=== PATIENT | female | born 1985 | race American Indian/Alaskan Native ===

== ENCOUNTER 2017-12-16 18:41 | Emergency (ER) | payer SELFPAY ==
[2017-12-16 18:46] VITALS: BP 126/60
[2017-12-16] MEDS ORDERED: BOOSTRIX IM ONE (19:33)
--- NOTE | 2017-12-16 19:38 | Emergency Department Report ---
Abscess Boil HPI - HPI Chief Complaint: Skin/Abscess/Foreign Body Stated Complaint: BOIL Time Seen by Provider: 12/16/17 19:20 Duration: 2 Days Location: Perianal Severity: Severe History: Yes Pain, No Fever, No Purulent Drainage, No Numbness, No Foreign Body , No Previous History, No Insect Bite HPI: Patient reports an abscess to the right buttock that started two days ago. However she refuses irrigation and drainage at this time. She is requesting antibiotic and pain medication Home Medications: Previous Rx's Medication Instructions Recorded Last Taken Type Cephalexin [Keflex] 500 mg PO Q12HR #20 cap 12/16/17 Unknown Rx Ibuprofen 800 mg PO TID #30 tablet 12/16/17 Unknown Rx Sulfamethoxazole/Trimethoprim 1 each PO BID #14 tablet 12/16/17 Unknown Rx [Bactrim DS TAB] Allergies/Adverse Reactions: Allergies Allergy/AdvReac Type Severity Reaction Status Date / Time No Known Allergies Allergy Unverified 12/16/17 18:44 ED Review of Systems ROS: Stated complaint: BOIL Other details as noted in HPI Constitutional: denies: chills, fever Respiratory: denies: cough, orthopnea, shortness of breath, SOB with exertion, SOB at rest, stridor, wheezing Cardiovascular: denies: chest pain, palpitations, dyspnea on exertion, orthopnea , edema, syncope, paroxysmal nocturnal dyspnea Gastrointestinal: denies: abdominal pain, nausea, vomiting, diarrhea, constipation, hematemesis, melena, hematochezia Musculoskeletal: denies: back pain, joint swelling, arthralgia Skin: other (abscess to right buttock) Neurological: denies: headache, weakness, paresthesias Psychiatric: denies: anxiety, depression Hematological/Lymphatic: denies: easy bleeding, easy bruising ED Past Medical Hx - Past Medical History Previous Medical History?: No - Surgical History Past Surgical History?: No - Social History Smoking Status: Current Every Day Smoker Substance Use Type: Alcohol, Marijuana - Medications Home Medications: Home Medications Medication Instructions Recorded Confirmed Last Taken Type Cephalexin [Keflex] 500 mg PO Q12HR #20 cap 12/16/17 Unknown Rx Ibuprofen 800 mg PO TID #30 tablet 12/16/17 Unknown Rx Sulfamethoxazole/Trimethoprim 1 each PO BID #14 tablet 12/16/17 Unknown Rx [Bactrim DS TAB] ED Abscess Boil Physical Exam - Exam General: Vital signs noted. No distress. Alert and acting appropriately. Size: 2 cm Exam: Yes Tenderness, Yes Fluctuance, Yes Normal Neurologic Exam, Yes Normal Circulation, No Surrounding Cellulites/Erythema, No Lymphangitis, No Crepitation , No Heart Murmur ED Course Vital Signs 12/16/17 18:44 Temperature 98.9 F Pulse Rate 85 Respiratory 18 Rate Blood Pressure 126/60 O2 Sat by Pulse 99 Oximetry Critical care attestation.: If time is entered above; I have spent that time in minutes in the direct care of this critically ill patient, excluding procedure time. ED Medical Decision Making - Lab Data Vital Signs 12/16/17 18:44 Temperature 98.9 F Pulse Rate 85 Respiratory 18 Rate Blood Pressure 126/60 O2 Sat by Pulse 99 Oximetry - Medical Decision Making During the course of ED, tetanus vaccine was given. Patient refuses I&D of right buttock abscess due to pain and history of I&D in the past near the same location. She was sent home with prescription for Keflex, Bactrim DS and Ibuprofen, instructed to do warm bath soaks three times a day to expedite drainage of abscess, she verbalized understanding - Differential Diagnosis Abscess, Cellulitis ED Disposition Clinical Impression: Abscess Disposition: [id number]-01 TO HOME OR SELFCARE Is pt being admited?: No Does the pt Need Aspirin: No Condition: Stable Instructions: Abscess (ED) Additional Instructions: Take medication as directed. Warm bath soaks three times a day to expedite drainage of abscess. Return back to the ED for worsening symptoms or concerns Prescriptions: Cephalexin [Keflex] 500 mg PO Q12HR #20 cap Ibuprofen 800 mg PO TID #30 tablet Sulfamethoxazole/Trimethoprim [Bactrim DS TAB] 1 each PO BID #14 tablet Referrals: PRIMARY CARE, [Primary Care Provider] - 3-5 Days Forms: Work/School Release Form(ED) Time of Disposition: 19:39
== END 2017-12-16 19:42 | disposition home or self-care (01) ==
LOC: ED 18:41
DX: L02.31 Cutaneous abscess of buttock (principal); F17.200 Nicotine dependence, unspecified, uncomplicated; F12.10 Cannabis abuse, uncomplicated
CPT/HCPCS: 90471; 90715; 99282

== ENCOUNTER 2020-12-17 12:21 | Emergency (ER) | payer BC ==
[2020-12-17 15:38] LABS: Basophils % (Auto) 0.5 % (0.0-1.8); Eosinophils # (Auto) 0.1 K/mm3 (0.0-0.4); Eosinophils % (Auto) 1.3 % (0.0-4.3); Lymphocytes # (Auto) 1.9 K/mm3 (1.2-5.4); Lymphocytes % (Auto) 32.3 % (13.4-35.0); Mean Corpuscular HGB Conc 34 % (30-34); Mean Corpuscular Volume 99 fl (79-97); Monocytes # (Auto) 0.4 K/mm3 (0.0-0.8); Platelet Count 267 K/mm3 (140-440); Red Blood Count 4.15 M/mm3 (3.65-5.03); Red Cell Distribution Width 15.4 % (13.2-15.2)
[2020-12-17 15:52] LABS: Alanine Aminotransferase 10 units/L (7-56); Albumin 4.4 g/dL (3.9-5); BUN/Creatinine Ratio 11; Blood Urea Nitrogen 10 mg/dL (7-17); Calcium 9.2 mg/dL (8.4-10.2); Hemolysis Index 2
--- NOTE | 2020-12-17 17:43 | Emergency Department Report ---
ED Chest Pain HPI - General Chief Complaint: Chest Pain Stated Complaint: CHEST PAINS PUI?: No Time Seen by Provider: 12/17/20 17:15 Source: patient Mode of arrival: Ambulatory Limitations: No Limitations - History of Present Illness Initial Comments: Patient is a 35-year-old female that presents emergency room with complaints of left-sided chest pain x2 days. Patient states that she also has a slight cough. Patient reports dry cough. Patient denies fever or chills. Patient states that her chest pain has been intermittent for 3 months but over the past 2 days has been a little bit more permanent. Patient states that her chest pain is better with rest and remaining still. Patient states that her pain is really bad when she tries to work and lift things at work. Patient states that she received her Sanjeev Adype vaccine October 2020. Patient denies nausea vomiting. Patient denies shortness of breath. Patient denies abdominal pain. Patient denies diaphoresis. Patient denies anxiety. Patient denies recent travel. Patient denies recent international travel. Patient denies exposure to the novel coronavirus. Patient denies sick contacts. Patient denies fever and chills. Patient denies cough. Patient denies diarrhea. Patient denies coming in contact with anybody with symptoms of the novel coronavirus. MD Complaint: chest pain -: Sudden Onset: during rest Pain Location: left chest Pain Radiation: none Severity: severe Severity scale (0 -10): 10 Quality: sharp Consistency: constant Improves With: rest, remaining still Worsens With: inspiration, palpation, movement re: denies: nausea, vomting, diaphoresis, dyspnea, sense of impending doom Other Symptoms: cough. denies: fever, rash, acid taste in mouth, leg swelling, palpitations, burping Treatments Prior to Arrival: none Aspirin use within the Past 7 Days: (0) No - Related Data On Oral Contraceptives: No Previous Rx's Medication Instructions Recorded Last Taken Type Ibuprofen 800 mg PO TID #30 tablet 12/16/17 Unknown Rx Sulfamethoxazole/Trimethoprim 1 each PO BID #14 tablet 12/16/17 Unknown Rx [Bactrim DS TAB] cephALEXin [Keflex] 500 mg PO Q12HR #20 cap 12/16/17 Unknown Rx Albuterol Mdi (or & Nicu Only) 2 puff IH Q4HR PRN #1 inhalation 06/25/18 Unknown Rx [ProAir HFA Inhaler] Oseltamivir [Tamiflu] 75 mg PO BID #10 cap 06/25/18 Unknown Rx Acetaminophen [Non-Aspirin Pain 1,000 mg PO QID PRN #30 tablet 02/05/20 Unknown Rx Relief] Amoxicillin/Potassium Clav 1 each PO BID 7 Days #14 tablet 02/05/20 Unknown Rx [Augmentin 875-125 Tablet] diphenhydrAMINE [Benadryl CAP] 25 mg PO Q8HR PRN #30 capsule 02/05/20 Unknown Rx Acetaminophen/Codeine [Tylenol 1 tab PO Q6H PRN #12 tab 12/17/20 Unknown Rx /Codeine # 3 tab] methylPREDNISolone [Medrol 4MG 4 mg PO DAILY 6 Days #1 tab.ds.pk 12/17/20 Unknown Rx DOSEPAK (21 tabs)] Allergies Allergy/AdvReac Type Severity Reaction Status Date / Time shellfish derived Allergy Dizziness Verified 02/05/20 18:00 ANTS Allergy Anaphylaxis Uncoded 02/05/20 18:00 Heart Score - HEART Score History: Slightly suspicious EKG: Normal Age: < 45 Risk factors: No known risk factors Troponin: < normal limit HEART Score: 0 - EKG Read Time Time EKG Completed: 12:25 EKG Read Time: 12:29 ED Review of Systems ROS: Stated complaint: CHEST PAINS Other details as noted in HPI Constitutional: denies: chills, fever Eyes: denies: eye pain, eye discharge, vision change ENT: denies: ear pain, throat pain Respiratory: see HPI, cough. denies: shortness of breath, wheezing Cardiovascular: as per HPI, chest pain. denies: palpitations Endocrine: no symptoms reported Gastrointestinal: denies: abdominal pain, nausea, diarrhea Genitourinary: denies: urgency, dysuria, discharge Musculoskeletal: denies: back pain, joint swelling, arthralgia Skin: denies: rash, lesions Neurological: denies: headache, weakness, paresthesias Psychiatric: denies: anxiety, depression Hematological/Lymphatic: denies: easy bleeding, easy bruising ED Past Medical Hx - Past Medical History Previous Medical History?: Yes Hx Headaches / Migraines: Yes Additional medical history: DEPRESSION/ PTSD/ ANXIETY - Surgical History Past Surgical History?: No - Family History Family history: no significant - Social History Smoking Status: Current Every Day Smoker Substance Use Type: Alcohol, Marijuana - Medications Home Medications: Home Medications Medication Instructions Recorded Confirmed Last Taken Type Ibuprofen 800 mg PO TID #30 tablet 12/16/17 Unknown Rx Sulfamethoxazole/Trimethoprim 1 each PO BID #14 tablet 12/16/17 Unknown Rx [Bactrim DS TAB] cephALEXin [Keflex] 500 mg PO Q12HR #20 cap 12/16/17 Unknown Rx Albuterol Mdi (or & Nicu Only) 2 puff IH Q4HR PRN #1 inhalation 06/25/18 Unknown Rx [ProAir HFA Inhaler] Oseltamivir [Tamiflu] 75 mg PO BID #10 cap 06/25/18 Unknown Rx Acetaminophen [Non-Aspirin Pain 1,000 mg PO QID PRN #30 tablet 02/05/20 Unknown Rx Relief] Amoxicillin/Potassium Clav 1 each PO BID 7 Days #14 tablet 02/05/20 Unknown Rx [Augmentin 875-125 Tablet] diphenhydrAMINE [Benadryl CAP] 25 mg PO Q8HR PRN #30 capsule 02/05/20 Unknown Rx Acetaminophen/Codeine [Tylenol 1 tab PO Q6H PRN #12 tab 12/17/20 Unknown Rx /Codeine # 3 tab] methylPREDNISolone [Medrol 4MG 4 mg PO DAILY 6 Days #1 tab.ds.pk 12/17/20 Unknown Rx DOSEPAK (21 tabs)] ED Physical Exam - General Limitations: No Limitations General appearance: alert, in no apparent distress - Head Head exam: Present: atraumatic, normocephalic - Eye Eye exam: Present: normal appearance - ENT ENT exam: Present: mucous membranes moist - Neck Neck exam: Present: normal inspection - Respiratory Respiratory exam: Present: normal lung sounds bilaterally, chest wall tenderness (Palpation of the left chest wall reproduces symptoms.). Absent: respiratory distress - Cardiovascular Cardiovascular Exam: Present: regular rate, normal rhythm. Absent: systolic murmur, diastolic murmur, rubs, gallop - GI/Abdominal GI/Abdominal exam: Present: soft, normal bowel sounds - Extremities Exam Extremities exam: Present: normal inspection - Back Exam Back exam: Present: normal inspection - Neurological Exam Neurological exam: Present: alert, oriented X3 - Psychiatric Psychiatric exam: Present: normal affect, normal mood - Skin Skin exam: Present: warm, dry, intact, normal color. Absent: rash ED Course Vital Signs 12/17/20 12:36 Temperature 98.5 F Pulse Rate 77 Respiratory 18 Rate Blood Pressure 135/92 O2 Sat by Pulse 100 Oximetry - Reevaluation(s) Reevaluation #1: I discussed all results and clinical findings with patient. I discussed plan of care with patient. Patient agrees with plan of care. Patient is stable for discharge. Patient will be discharged home. Patient given discharge instructions. Patient voiced understanding of discharge instructions. 12/17/20 17:43 MAYKEL score - Maykel Score Age > 65: (0) No Aspirin use within the Past 7 Days: (0) No 3 or more CAD Risk Factors: (0) No 2 or more Angina events in past 24 hrs: (0) No Known CAD with more than 50% Stenosis: (0) No Elevated Cardiac Markers: (0) No ST Deviation Greater than 0.5mm: (0) No MAYKEL Score: 0 ED Medical Decision Making - Lab Data Result diagrams: 12/17/20 15:19 12/17/20 15:19 - EKG Data -: EKG Interpreted by Me EKG shows normal: sinus rhythm, axis, intervals, QRS complexes, ST-T waves Rate: normal - Radiology Data Radiology results: report reviewed, image reviewed interpreted by me: Chest x-ray: No pneumonia, no pneumothorax, no foreign body, no osseous findings, no acute findings - Medical Decision Making Patient is a 35-year-old female who presents emergency room with complaints of chest pain x2 days. Patient had labs done which were essentially unremarkable patient has troponin was negative. Patient EKG which was negative for acute findings showed a normal ST. I personally reviewed the EKG. Patient had a chest x-ray which shows no acute findings. I personally reviewed the chest x- ray. Patient's clinical findings are consistent with a chest wall pain and chest wall sprain. Patient will be given a steroid pack for the chest wall pain and a pain medication. Patient is stable for discharge. Patient discharged home. Patient is being discharged home because her chest pain is low risk. Patient's chest pain is most likely musculoskeletal however because the patient presents emergency room with complaints of chest pain, the patient's information was faxed over to her local food inspector for further evaluation and treatment and risk stratification of her chest pain. - Differential Diagnosis Chest pain, muscular chest pain, chest wall sprain, pleurisy Critical care attestation.: If time is entered above; I have spent that time in minutes in the direct care of this critically ill patient, excluding procedure time. ED Disposition Clinical Impression: Chest wall pain, Cough Chest pain Qualifiers: Chest pain type: unspecified Qualified Code(s): R07.9 - Chest pain, unspecified Sprain of chest wall Qualifiers: Encounter type: initial encounter Qualified Code(s): S23.8XXA - Sprain of other specified parts of thorax, initial encounter Disposition: TO HOME OR SELFCARE Is pt being admited?: No Does the pt Need Aspirin: No Condition: Stable Instructions: Nonspecific Chest Pain, Adult, Chest Wall Pain, [id number], Cough, Adult, [id number], Chest Wall Pain, Thoracic Strain, [id number] Additional Instructions: Patient to follow-up with primary care in 2 to 3 days. Patient to follow-up with cardiology and orthopedist in 2 to 3 days. Patient to rest. Patient to increase water. Patient to avoid strenuous exercise or heavy lifting until cleared by cardiology and orthopedist. Patient to take Tylenol or ibuprofen as needed for pain. Patient to take meds as directed. Patient to return to the ER if condition worsens, changes or new symptoms arise. Prescriptions: methylPREDNISolone [Medrol 4MG DOSEPAK (21 tabs)] 4 mg PO DAILY 6 Days #1 tab.ds.pk Acetaminophen/Codeine [Tylenol /Codeine # 3 tab] 1 tab PO Q6H PRN #12 tab PRN Reason: pain Referrals: LUCERO SOLER MD [Primary Care Provider] - 2-3 Days FERMIN POWELL MD [Staff Physician] - 2-3 Days STEFAN FOSTER MD [Staff Physician] - 2-3 Days Time of Disposition: 17:49
[2020-12-17 18:12] VITALS: BP 139/85
--- NOTE | 2020-12-17 18:13 | XRay Report ---
CHEST 1 VIEW 12/17/2020 5:04 PM INDICATION / CLINICAL INFORMATION: CHEST PAIN. COMPARISON: None available. FINDINGS: SUPPORT DEVICES: None. HEART / MEDIASTINUM: The heart size and pulmonary vasculature are normal. The aorta is normal in aime [place]. LUNGS / PLEURA: No significant pulmonary or pleural abnormality. No pneumothorax. ADDITIONAL FINDINGS: There is slight lower thoracic dextroscoliosis. IMPRESSION: No acute findings. Signer Name: Malik Kimbrough MD Signed: 12/17/2020 6:09 PM Workstation Name: [id number]
--- NOTE | 2020-12-23 12:36 | Electrocardiograph Report ---
[facility] Test Date: 2020-12-17 Test Time: 12:32:56 Pat Name: LIDA FRITZ Department: Room: Gender: F Elderly Caregiver: HAYLIE : 1985 Requested By: NEO FOUNTAIN Order Number: [id number] Reading MD: Jamie Stevens Measurements Intervals Clarissa Rate: 70 P: 78 SC: 140 QRS: 71 QRSD: 105 T: 8 QT: 403 QTc: 436 Interpretive Statements Sinus rhythm Probable left atrial enlargement No previous ECG available for comparison Electronically Signed On 12-23-2020 12:36:25 EDT by Jamie Stevens
== END 2020-12-17 18:11 | disposition home or self-care (01) ==
LOC: ED 12:21
DX: S23.8XXA Sprain of other specified parts of thorax, initial encounter (principal); R07.89 Other chest pain; R05 Cough; G43.909 Migraine, unspecified, not intractable, without status migrainosus; F32.9 Major depressive disorder, single episode, unspecified; F41.9 Anxiety disorder, unspecified; F17.200 Nicotine dependence, unspecified, uncomplicated; F12.90 Cannabis use, unspecified, uncomplicated; Z79.899 Other long term (current) drug therapy; Z91.013 Allergy to seafood; X58.XXXA Exposure to other specified factors, initial encounter; Y93.89 Activity, other specified; Y92.89 Other specified places as the place of occurrence of the external cause; Y99.8 Other external cause status
CPT/HCPCS: 36415; 71045; 80053; 84484; 85025; 93005